=== PATIENT | female | born 1945 | race Caucasian/White ===

== ENCOUNTER → 2016-08-16 | Outpatient (CLI) | payer MEDICARE, BC ==
[~2016-08-16] MED LIST: CALCIUM 1200 W/1 SGL PO; FLEXERIL 1010 MG/TAB PO; FLUCONAZOLE; HCTZ; LEVAQUIN 750MG750 M1 PO; LORTAB 5/500 501 TAB PO; MOTRIN 800800 MG/TAB PO; NORCO 325 MG-51 TAB PO; OMEGA-3 FISH1200 MG PO; PREVACID 30MG30 M1 PO; PROTONIX 40MG T40 MG PO; SYNTHROID0.1 MG PO; TOPROL XL 50MG50 MG PO; WELLBUTRIN 100100 MG PO; ZOVIRAX400 MG PO
== END ==
LOC: MC.RAD 13:20
DX: Z12.31 Encounter for screening mammogram for malignant neoplasm of breast (principal)

== ENCOUNTER → 2017-08-18 | Outpatient (CLI) | payer MEDICARE, BC | LOC: MC.RAD 09:40 | DX: Z12.31 Encounter for screening mammogram for malignant neoplasm of breast (principal); I10 Essential (primary) hypertension ==

== ENCOUNTER → 2018-01-05 | Outpatient (CLI) | payer MEDICARE, BC | LOC: COL.CARD 07:30 | DX: R00.2 Palpitations (principal) ==

== ENCOUNTER 2018-03-19 17:29 | Emergency (ER) | payer MEDICARE, BC ==
[~2018-03-19] VITALS: Ht 162.6 cm; Wt 70.0 kg
[2018-03-19 17:36] VITALS: TEMP 97.3
[2018-03-19 17:55] LABS: BASO % 0.1 % (0.0-2.0); EOS % 0.1 % (0-4.0); GRAN # 5.1 (1.4-6.5); GRAN % 61.1 % (42.2-75.2); HEMATOCRIT 41.9 % (37.0-47.0); HEMOGLOBIN 14.7 g/dl (12.5-16.0); LYMPH % 24.1 % (20.0-51.0); MEAN CELL VOLUME 88 fl (80.0-100.0); MEAN CORPUSCULAR HEMOGLOBIN 31 pg (27.0-31.0); MEAN CORPUSCULAR HGB CONC 35 g/dl (33.0-37.0); MONO % 11.9 % (1.7-9.3); PLATELET COUNT 212 K/mm3 (130-400); RED BLOOD COUNT 4.77 M/mm3 (4.10-5.30); REDCELL DISTRIBUTION WIDTH-CV 13.2 % (11.5-14.5)
[2018-03-19 18:06] LABS: ALANINE AMINOTRANSFERASE 27 U/L (9-52); ALBUMIN 4.6 gm/dL (3.5-5.0); ALKALINE PHOSPHATASE 59 U/L (50-136); ANION GAP 10 mmol/L (7-16); AST,SGOT 21 U/L (15-37); BILIRUBIN,TOTAL 0.6 mg/dL (0.0-1.0); BLOOD UREA NITROGEN 12 mg/dL (7-17); CALCIUM 9.1 mg/dL (8.4-10.2); CARBON DIOXIDE 25 mmol/L (22-30); CHLORIDE 105 mmol/L (98-107); CREATININE, serum 0.72 mg/dL (0.52-1.25); GLUCOSE 117 mg/dL (74-106); LIPASE 144 U/L (23-300); POTASSIUM 3.7 mmol/L (3.4-5.0); SODIUM 140 mmol/L (137-145); TOTAL PROTEIN 7.9 gm/dL (6.4-8.2)
[2018-03-19 18:18] LABS: TROPONIN-I < 0.012 ng/mL (0.000-0.034)
[2018-03-19 20:30] VITALS: BP 152/92; PULSE 79
== END 2018-03-19 21:18 | disposition home or self-care (01) ==
LOC: COL.ER 17:29
PROVIDERS: Emergency Medicine
DX: R07.89 Other chest pain (principal); I10 Essential (primary) hypertension; E78.5 Hyperlipidemia, unspecified; F41.9 Anxiety disorder, unspecified; Z98.890 Other specified postprocedural states
CPT/HCPCS: J7030

== ENCOUNTER 2018-07-28 09:17 | Inpatient (IN) | payer MEDICARE, BC ==
[~2018-07-28] VITALS: Ht 165.1 cm; Wt 70.0 kg
[~2018-07-28 09:17] MED LIST changes: -PREVACID 30MG30 M1 PO; +PRILOSEC 20MG20 MG PO
[2018-07-28] MEDS ORDERED: SYNTHROID0.075 MG/T PO (09:40)
[2018-07-28 10:15] LABS: HEMATOCRIT 37.4 % (37.0-47.0); HEMOGLOBIN 13.7 g/dl (12.5-16.0); MEAN CELL VOLUME 83 fl (80.0-100.0); MEAN CORPUSCULAR HEMOGLOBIN 31 pg (27.0-31.0); MEAN CORPUSCULAR HGB CONC 37 g/dl (33.0-37.0); MEAN PLATELET VOLUME 9.4 fl (7.4-10.4); PLATELET COUNT 175 K/mm3 (130-400); RED BLOOD COUNT 4.49 M/mm3 (4.10-5.30); REDCELL DISTRIBUTION WIDTH-CV 14.1 % (11.5-14.5)
[2018-07-28 10:27] LABS: ALBUMIN 4.4 gm/dL (3.5-5.0); CALCIUM 8.8 mg/dL (8.4-10.2); CREATININE, serum 0.86 mg/dL (0.52-1.25); POTASSIUM 3.2 mmol/L (3.4-5.0); TOTAL PROTEIN 7.5 gm/dL (6.4-8.2)
[2018-07-28 10:37] LABS: BAND 2 % (0-10); LYMPHOCYTE 12 % (20.0-51.0); NEUTROPHILS 80 % (42.0-75.2)
[2018-07-28 10:38] LABS: PLATELET ESTIMATE NORMAL (NORMAL)
[2018-07-28] MEDS ORDERED: NEURONTIN100 MG/CAP PO (11:32)
[2018-07-28] MEDS ORDERED: COZAAR 50MG50 MG/TAB PO (11:33)
[2018-07-28] MEDS ORDERED: VENTOLIN0.09 MG INH (11:34)
[2018-07-28] MEDS ORDERED: VALIUM 5MG T5 MG/TAB PO (11:35)
[2018-07-28 13:38] VITALS: BP 109/79; PULSE 78; TEMP 99.8
--- NOTE | 2018-07-28 13:45 | NUR ---
PATIENT ASSESSEMENT COMPLETED. SHE IS ORIENTED TO HER ROOM. NEW DEPENDS BROUGHT TO THE ROOM, PATIENT IS INCONTINENT OF BOWEL AND BLADDER.
[2018-07-28] MEDS ORDERED: ZOVIRAX400 MG PO (13:54)
[2018-07-28] MEDS ORDERED: AMITRIPTYLINE H25 M1 PO (13:56)
--- NOTE | 2018-07-28 15:30 | NUR ---
PATIENT IS SLEEPING, SHE IS NOT BEEN SLEEPING WELL SINCE SHE HAS BEEN COUGHING SO MUCH. I AM HOLDING HER LOVENOX UNTIL SHE WAKES UP.
[2018-07-28 15:32] VITALS: BP 133/76; PULSE 75; TEMP 98.8
[2018-07-28 17:52] LABS: CALCIUM 8.1 mg/dL (8.4-10.2); CREATININE, serum 0.81 mg/dL (0.52-1.25); POTASSIUM 3.7 mmol/L (3.4-5.0)
[2018-07-28 19:17] VITALS: BP 117/71; PULSE 78; TEMP 98.3
--- NOTE | 2018-07-28 20:57 | NUR ---
Patient assessed at this time. Denies having SOB and dyspnea at this time. On oxygen at 2 L/min via NC. Reports occasional dyspnea with exertion. Reports frequent moist cough, but unable to produce any sputum. Denies chest pain and discomfort. NS running at 75 ml/hr to IV to left wrist area. Site is without redness, warmth, swelling, and pain. In bed visiting with friend at this time. Voices no needs or concerns. Call light is within reach.
[2018-07-28 21:35] LABS: COLLECTION METHOD CLEAN CATCH
[2018-07-28 21:44] LABS: PH 6 (5-8); SQUAMOUS EPITHELIAL 0-2 /hpf; URINE APPEARANCE Clear; URINE BACTERIA None Seen /hpf; URINE BILIRUBIN Negative (NEGATIVE); URINE BLOOD Negative (NEGATIVE); URINE COLOR Straw; URINE GLUCOSE Negative (NEGATIVE); URINE KETONE Negative (NEGATIVE); URINE LEUKOCYTE ESTERASE Negative (NEGATIVE); URINE NITRATE Negative (NEGATIVE); URINE PROTEIN(semi-quant) Negative (NEGATIVE); URINE RBC None Seen /hpf; URINE UROBILINOGEN Negative (NEGATIVE); URINE WBC None Seen /hpf
[2018-07-28 21:49] LABS: CREATININE, serum 0.77 mg/dL (0.52-1.25)
[2018-07-28 21:51] LABS: CREATININE, serum 0.77 mg/dL (0.52-1.25)
[2018-07-28 21:52] LABS: FRACTIONAL EXCRETION OF NA+ 0.2 %
[2018-07-28 23:58] VITALS: BP 119/77; PULSE 72
--- NOTE | 2018-07-29 01:07 | NUR ---
Patient denies having pain and discomfort. Patient educated on diet order for no free water, coffee, or tea related to hyponatremia. Patient given cranberry juice and apple juice as requested. Continues on NS at 75 ml/hr to left wrist. Voices no questions or concerns at this time. No BM so far this shift. Wears pull ups for occasional incontinence related to cough. Moist cough continues, unable to produce sputum. Resting in bed with eyes closed at this time. Call light is within reach.
[2018-07-29 04:01] VITALS: BP 131/83; PULSE 71; TEMP 97.9
--- NOTE | 2018-07-29 04:59 | NUR ---
Patient pulled out IV to left wrist. Area cleansed. New IV started to left wrist. Patient was without oxygen for about 15 minutes while she went to the bathroom, new IV was started, and bedding was changed. Denied having any SOB and dyspnea. oxygen level checked, with a result of 99% on room air. RT was notified. Cough continues. Unable to produce any sputum. Patient aware that stool sample is still needed. No BM so far this shift. Collection device is in the toilet. Voices no needs or concerns at this time. Resting in bed with eyes closed at this time. Call light is within reach.
--- NOTE | 2018-07-29 07:14 | NUR ---
Resting in bed with eyes closed at this time. Report given to next shift.
[2018-07-29 08:15] VITALS: BP 122/84; PULSE 79; TEMP 98.2
--- NOTE | 2018-07-29 09:00 | NUR ---
PATIENT ASSESSMENT COMPLETED. SHE REPORTS THAT SHE IS REALLY TIRED AND IS NOW COUGHING ALOT AGAIN. SHE IS USING HER ON [employer]ICOLA [employer]ROAT LOZENGES. BREAKFAST HAS BEEN PROVIDED SHE IS HOPING SHE WILL BE ABLE TO EAT. NO OTHER NEEDS AT THIS TIME.
[2018-07-29 09:57] LABS: HEMOGLOBIN 11.9 g/dl (12.5-16.0); MEAN CELL VOLUME 87 fl (80.0-100.0); MEAN CORPUSCULAR HEMOGLOBIN 31 pg (27.0-31.0); MEAN CORPUSCULAR HGB CONC 35 g/dl (33.0-37.0); MEAN PLATELET VOLUME 9.8 fl (7.4-10.4); PLATELET COUNT 148 K/mm3 (130-400); RED BLOOD COUNT 3.87 M/mm3 (4.10-5.30); REDCELL DISTRIBUTION WIDTH-CV 14.6 % (11.5-14.5)
[2018-07-29 10:01] LABS: CALCIUM 8.4 mg/dL (8.4-10.2); CREATININE, serum 0.67 mg/dL (0.52-1.25); POTASSIUM 3.7 mmol/L (3.4-5.0)
[2018-07-29 10:02] LABS: HEMATOCRIT 33.6 % (37.0-47.0)
[2018-07-29 12:38] LABS: BAND 20 % (0-10); LYMPHOCYTE 18 % (20.0-51.0); NEUTROPHILS 50 % (42.0-75.2); PLATELET ESTIMATE NORMAL (NORMAL)
--- NOTE | 2018-07-29 12:52 | NUR ---
Plan:To return home with [facility]. Assess: Patient report residing locally. Patient shares that she does not use any DME at this time but will in the near future because she will be having knee surgery with Dr. Ordaz. PCP reported as Dr. Ti Wright. Patient reports emr contact Dee Duong . DPOA is sister Edwina Ruiz in [place] is contact [phone]. Patient indicated that she uses [facility] for RX. No upcoming apps with PCP but will see Dr. Rizvi soon. Action: Provided patient with medicare.gov home health care sheet as resource for home health care. Patient choose [facility]. JEANNINE faxed referral to [facility]. Lissy called to confirm refferal. No additonal concerns reported at this time.
[2018-07-29 13:16] VITALS: BP 117/60; PULSE 76; TEMP 98.9
[2018-07-29 16:41] VITALS: BP 130/73; PULSE 79; TEMP 98.4
--- NOTE | 2018-07-29 16:56 | NUR ---
CY IS UP IN THE CHAIR. SHE DID HAVE A BOUT OF INCONTINENT DIARRHEA SHE WAS CLEANED UP. SHE ALSO REPORTS THAT THE COUGHING IS A LITTLE BETTER AFTER STARTING THE NEW COUGH MEDICATIONS.
[2018-07-29 19:04] VITALS: BP 125/76; PULSE 79; TEMP 98.2
--- NOTE | 2018-07-29 20:25 | NUR ---
Shift assessment complete. Pt resting in bedside recliner, awake, a&o, cooperative c cares. Pt denies pain or other c/o at this time. Reports cough is "much better than it was". INT patent. Pt denies needs. Call light in reach, will monitor.
[2018-07-29 23:20] VITALS: BP 125/67; PULSE 87; TEMP 98.3
[2018-07-30 06:29] LABS: BASO % 0.3 % (0.0-2.0); EOS % 0.3 % (0-4.0); GRAN # 1.1 (1.4-6.5); GRAN % 35.6 % (42.2-75.2); HEMOGLOBIN 11.5 g/dl (12.5-16.0); LYMPH # 1.4 (1.2-3.4); LYMPH % 44.4 % (20.0-51.0); MEAN CELL VOLUME 91 fl (80.0-100.0); MEAN CORPUSCULAR HEMOGLOBIN 31 pg (27.0-31.0); MEAN CORPUSCULAR HGB CONC 34 g/dl (33.0-37.0); MEAN PLATELET VOLUME 9.8 fl (7.4-10.4); MONO # 0.6 (0.1-0.6); MONO % 18.8 % (1.7-9.3); PLATELET COUNT 152 K/mm3 (130-400); RED BLOOD COUNT 3.76 M/mm3 (4.10-5.30); REDCELL DISTRIBUTION WIDTH-CV 15.3 % (11.5-14.5)
[2018-07-30 06:30] LABS: HEMATOCRIT 34.1 % (37.0-47.0)
[2018-07-30 06:41] LABS: CALCIUM 8.4 mg/dL (8.4-10.2); CREATININE, serum 0.73 mg/dL (0.52-1.25); POTASSIUM 4.2 mmol/L (3.4-5.0)
[2018-07-30 07:35] VITALS: BP 130/74; PULSE 85; TEMP 98.7
--- NOTE | 2018-07-30 09:21 | NUR ---
PT IN BED WITH HOB ELEVATED TO 45 DEGREE ANGLE. PT HAS BEEN UP TO EAT BREAKFAST IN RECLINER AND THEN HAD PROBLEMS WITH COUGHING AND RT WAS CALLED. RT ADVISED THAT LS CLEAR AND O2 AT 99% ON RA, NO BREATHING TX AT THIS TIME THAT SHE CAN GIVE. PT HAS HAD RATED AT A 9/10 AND PT ADVISES THAT SHE NORMALLY TAKES MOTRIN, BUT WE DO NOT HAVE AN ORDER FOR IT. TYLENOL GIVEN. NO FURTHER NEEDS CALL LIGHT WITHIN REACH.
[2018-07-30] MEDS ORDERED: TAMIFLU 75MG75 MG PO (11:52)
[2018-07-30] MEDS ORDERED: TESSALON P100 MG/CAP PO (11:54)
[2018-07-30 12:00] VITALS: BP 142/79; PULSE 78; TEMP 98.7
--- NOTE | 2018-07-30 14:18 | NUR ---
GAVE DISCHARGE INSTRUCTIONS, PT VERBALIZED UNDERSTANDING. NO CONCERNS AT THIS TIME. CALL LIGHT WITHIN REACH.
--- NOTE | 2018-07-30 16:19 | NUR ---
REMOVED IV FROM PT'S ARM, CATHETER INTACT, APPLIED PRESSURE TILL BLEEDING STOPPED, AND A PROTECTIVE DRSG. PT HAS ALL PERSONAL BELONGINGS.
--- NOTE | 2018-07-30 16:26 | NUR ---
sheep farm worker met with patient on clinical rounds to discuss discharge planning. Patient lives alone and plans to return home today. Patient states she wants to utilize [facility] as she is familiar with their services. 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 Patient is now home bound and will have home health for fpc, physical and occupational therapy. Worker contacted [facility] and faxed clinical information and orders. Patient will have a friend transport her home today. Patient's primary care provider is Dr Asencio.
--- NOTE | 2018-07-30 17:00 | NUR ---
PT LEFT UNIT VIA WHEELCHAIR, ACCOMPANIED BY ROSENDO KOROMA. PT HAD ALL PERSONAL BELONGINGS WITH HER. PT WAS PICKED UP BY FRIEND IN PRIVATE VEHICLE.
== END 2018-07-30 17:00 | disposition home health service (06) | DRG 193 ==
LOC: COL.ER 09:17 → MEDICAL 11:39
PROVIDERS: Nurse Practitioner Primary Care; ADMIT Hospitalist
DX: J09.X2 Influenza due to identified novel influenza A virus with other respiratory manifestations (principal); J96.01 Acute respiratory failure with hypoxia; E87.1 Hypo-osmolality and hyponatremia; R65.10 Systemic inflammatory response syndrome (SIRS) of non-infectious origin without acute organ dysfunction; I10 Essential (primary) hypertension; E87.6 Hypokalemia; R19.7 Diarrhea, unspecified; R13.10 Dysphagia, unspecified; Z88.0 Allergy status to penicillin
CPT/HCPCS: 99233-AI; J1200; J1650; J2550; J2930; J7030

== ENCOUNTER 2018-08-09 08:41 | Outpatient (RCR) | payer MEDICARE, BC ==
[~2018-08-09 08:41] MED LIST changes: +AMITRIPTYLINE H25 M1 PO; +COZAAR 50MG50 MG/TAB PO; +NEURONTIN100 MG/CAP PO; +SYNTHROID0.075 MG/T PO; +TAMIFLU 75MG75 MG PO; +TESSALON P100 MG/CAP PO; +VALIUM 5MG T5 MG/TAB PO; +VENTOLIN0.09 MG INH
== END 2018-11-07 | disposition home or self-care (01) ==
LOC: WSST
DX: R13.10 Dysphagia, unspecified (principal)

== ENCOUNTER → 2018-08-20 | Outpatient (CLI) | payer MEDICARE, BC | LOC: COL.RAD 08:29 | DX: J39.2 Other diseases of pharynx (principal) ==

== ENCOUNTER → 2018-09-18 | Outpatient (CLI) | payer MEDICARE, BC | LOC: MC.RAD 09-04 09:45 | DX: Z12.31 Encounter for screening mammogram for malignant neoplasm of breast (principal) ==

== ENCOUNTER → 2019-10-23 | Outpatient (CLI) | payer MEDICARE, BC | LOC: MC.RAD 10:49 | DX: Z12.31 Encounter for screening mammogram for malignant neoplasm of breast (principal) ==

== ENCOUNTER 2019-12-05 20:01 | Emergency (ER) | payer MEDICARE, BC ==
[~2019-12-05] VITALS: Ht 162.6 cm; Wt 71.8 kg
[2019-12-05 21:10] LABS: EOS % 0.2 % (0-4.0); GRAN # 3.2 (1.4-6.5); GRAN % 74.2 % (42.2-75.2); HEMATOCRIT 43.8 % (37.0-47.0); LYMPH # 0.6 (1.2-3.4); LYMPH % 13.2 % (20.0-51.0); MEAN CELL VOLUME 87 fl (80.0-100.0); MEAN CORPUSCULAR HEMOGLOBIN 30 pg (27.0-31.0); MEAN CORPUSCULAR HGB CONC 34 g/dl (33.0-37.0); MEAN PLATELET VOLUME 9.7 fl (7.4-10.4); MONO # 0.5 (0.1-0.6); MONO % 11.5 % (1.7-9.3); PLATELET COUNT 177 K/mm3 (130-400); RED BLOOD COUNT 5.01 M/mm3 (4.10-5.30); REDCELL DISTRIBUTION WIDTH-CV 13.6 % (11.5-14.5)
[2019-12-05 21:14] LABS: ALBUMIN 4.8 gm/dL (3.5-5.0); BILIRUBIN,TOTAL 1.6 mg/dL (0.0-1.0); C-REACTIVE PROTEIN 1.1 mg/dL (0.0-0.9); CREATININE, serum 0.74 (0.52-1.25); POTASSIUM 3.8 mmol/L (3.4-5.0); TOTAL PROTEIN 8.5 gm/dL (6.4-8.2)
[2019-12-05 22:25] LABS: COLLECTION METHOD CLEAN CATCH
[2019-12-05 22:35] LABS: MUCOUS Present /lpf; PH 6 (5-8); SQUAMOUS EPITHELIAL 0-2 /hpf; URINE APPEARANCE Clear; URINE BACTERIA Rare /hpf; URINE BILIRUBIN Negative (NEGATIVE); URINE BLOOD Negative (NEGATIVE); URINE COLOR Yellow; URINE GLUCOSE Negative (NEGATIVE); URINE KETONE 1+ (NEGATIVE); URINE LEUKOCYTE ESTERASE Negative (NEGATIVE); URINE NITRATE Negative (NEGATIVE); URINE PROTEIN(semi-quant) Negative (NEGATIVE); URINE RBC None Seen /hpf; URINE UROBILINOGEN Negative (NEGATIVE)
[2019-12-05] MEDS ORDERED: ZOFRAN ODT4 MG PO (22:49)
[2019-12-05 23:40] VITALS: BP 142/67; PULSE 76; TEMP 98.5
== END 2019-12-05 23:37 | disposition home or self-care (01) ==
LOC: COL.ER 20:01
PROVIDERS: Physician Assistant
DX: R19.7 Diarrhea, unspecified (principal); R11.2 Nausea with vomiting, unspecified; R51 Headache; I10 Essential (primary) hypertension; K21.9 Gastro-esophageal reflux disease without esophagitis; E03.9 Hypothyroidism, unspecified; F41.9 Anxiety disorder, unspecified; Z88.0 Allergy status to penicillin; Z88.6 Allergy status to analgesic agent; Z79.890 Hormone replacement therapy; Z98.890 Other specified postprocedural states
CPT/HCPCS: J0780; J1885; J2405; J7030

== ENCOUNTER → 2020-02-26 | Outpatient (CLI) | payer MEDICARE, BC ==
[~2020-02-26] MED LIST changes: +ZOFRAN ODT4 MG PO
== END ==
LOC: COL.RAD 09:33
DX: J39.2 Other diseases of pharynx (principal); K22.4 Dyskinesia of esophagus

== ENCOUNTER → 2020-10-14 | Outpatient (CLI) | payer MEDICARE, BC | LOC: COL.VAS 11:57 | DX: I65.23 Occlusion and stenosis of bilateral carotid arteries (principal); R51.9 Headache, unspecified; M54.2 Cervicalgia ==

== ENCOUNTER → 2020-10-23 | Outpatient (CLI) | payer MEDICARE, BC | LOC: MC.RAD 13:30 | DX: Z12.31 Encounter for screening mammogram for malignant neoplasm of breast (principal) ==

== ENCOUNTER 2021-04-17 09:04 | Emergency (ER) | payer MEDICARE, BC ==
[~2021-04-17] VITALS: Ht 162.6 cm; Wt 66.8 kg
[2021-04-17 09:12] VITALS: TEMP 98.5
[2021-04-17 09:43] LABS: BASO % 0.5 % (0.0-2.0); EOS % 0.5 % (0-4.0); GRAN # 1.5 K/mm3 (1.4-6.5); GRAN % 39.4 % (42.2-75.2); HEMATOCRIT 38.3 % (37.0-47.0); HEMOGLOBIN 13.1 g/dl (12.5-16.0); LYMPH # 1.5 K/mm3 (1.2-3.4); LYMPH % 40.4 % (20.0-51.0); MEAN CELL VOLUME 87 fl (80.0-100.0); MEAN CORPUSCULAR HEMOGLOBIN 30 pg (27.0-31.0); MEAN CORPUSCULAR HGB CONC 34 g/dl (33.0-37.0); MEAN PLATELET VOLUME 9.6 fl (7.4-10.4); MONO # 0.7 K/mm3 (0.1-0.6); MONO % 18.4 % (1.7-9.3); PLATELET COUNT 163 K/mm3 (130-400); RED BLOOD COUNT 4.41 M/mm3 (4.10-5.30); REDCELL DISTRIBUTION WIDTH-CV 15.2 % (11.5-14.5)
[2021-04-17 09:54] LABS: ALANINE AMINOTRANSFERASE 14 U/L (0-55); ALBUMIN 4.2 gm/dL (3.4-4.8); ALKALINE PHOSPHATASE 65 U/L (40-150); ANION GAP 10 mmol/L (7-16); AST,SGOT 13 U/L (5-34); BILIRUBIN,TOTAL 1.1 mg/dL (0.2-1.2); BLOOD UREA NITROGEN 10 mg/dL (10-20); CALCIUM 9.1 mg/dL (8.4-10.2); CARBON DIOXIDE 24 mmol/L (23-31); CHLORIDE 108 mmol/L (98-107); CREATININE, serum 0.84 mg/dL (0.57-1.11); GLUCOSE 91 mg/dL (70-99); POTASSIUM 3.9 mmol/L (3.5-4.5); SODIUM 142 mmol/L (136-145); TOTAL PROTEIN 7.2 gm/dL (6.2-8.1)
[2021-04-17 09:56] LABS: PROTHROMBIN TIME 11.3 SECONDS (9.7-12.8)
[2021-04-17 09:59] LABS: PARTIAL THROMBOPLASTIN TIME 32.4 SECONDS (26.0-37.0)
[2021-04-17 10:00] LABS: TROPONIN-I < 0.010 ng/mL (0.00-0.033)
[2021-04-17 12:30] VITALS: BP 132/75; PULSE 74
== END 2021-04-17 12:37 | disposition home or self-care (01) ==
LOC: COL.ER 09:04
PROVIDERS: Family Medicine
DX: R07.89 Other chest pain (principal); M54.12 Radiculopathy, cervical region; I10 Essential (primary) hypertension; Z79.899 Other long term (current) drug therapy

== ENCOUNTER → 2021-07-16 | Outpatient (CLI) | payer MEDICARE, BC | LOC: MC.RAD 09:50 | DX: N64.4 Mastodynia (principal) ==

== ENCOUNTER → 2021-12-27 | Outpatient (CLI) | payer MEDICARE, BC | LOC: MC.RAD 08:56 | DX: N64.4 Mastodynia (principal) ==

== ENCOUNTER → 2022-01-13 | Outpatient (CLI) | payer MEDICARE, BC | LOC: COL.RAD 09:57 | DX: S46.011A Strain of muscle(s) and tendon(s) of the rotator cuff of right shoulder, initial encounter (principal); M19.011 Primary osteoarthritis, right shoulder ==

== ENCOUNTER → 2022-07-21 | Outpatient (CLI) | payer MEDICARE | LOC: MC.RAD 12:41 | DX: Z12.31 Encounter for screening mammogram for malignant neoplasm of breast (principal) ==

== ENCOUNTER → 2023-08-03 | Outpatient (CLI) | payer MEDICARE, BC | LOC: COL.RAD 10:21 | DX: K22.4 Dyskinesia of esophagus (principal); K44.9 Diaphragmatic hernia without obstruction or gangrene ==

== ENCOUNTER → 2024-01-03 | Outpatient (CLI) | payer MEDICARE, BC | LOC: MC.RAD 15:00 | DX: Z12.31 Encounter for screening mammogram for malignant neoplasm of breast (principal) ==